=== PATIENT | female | born 1950 | race Caucasian/White ===

== ENCOUNTER 2016-12-02 13:31 | Outpatient (CLI) | payer MEDICARE | END 2016-12-02 13:32 | disposition home or self-care (01) | DX: M16.12 Unilateral primary osteoarthritis, left hip (principal) ==

== ENCOUNTER 2018-07-30 08:32 | Outpatient (CLI) | payer MEDICARE ==
--- NOTE | 2018-08-02 08:41 | Mammography Report ---
Reason: SCREENING MAMMO Procedure Date: 07/30/2018 Accession Number: [id number] / [id number] Procedure: FER - Screening Mammo w/Arnold CPT Code: FULL RESULT: EXAM: Screening Mammo w/Arnold DATE: 07/30/2018 9:42 AM CLINICAL HISTORY: 68-year-old female with history of early menses presents for screening. TECHNIQUE: Bilateral CC and MLO views were obtained. COMPARISON: 02/14/2016, 12/27/2014, 12/15/2013, 12/10/2012. FINDINGS: The breasts demonstrate scattered fibroglandular densities bilaterally. No suspicious masses, clustered microcalcifications, or regions of architectural distortion are identified. IMPRESSION: Negative examination RECOMMENDATION: Routine annual screening unless otherwise clinically indicated. BIRADS CATEGORY 1: Negative STANDARD QUALIFYING STATEMENTS: 1. This examination was not reviewed with the aid of Computer-Aided Detection (CAD). 2. A negative or benign imaging report should not delay biopsy if clinically suspicious findings are present. Consider surgical consultation if warranted. More than 5% of cancers are not identified by imaging. 3. Dense breasts may obscure an underlying neoplasm. 4. This examination was reviewed with the aid of 3D breast imaging (tomosynthesis).
== END 2018-07-30 08:33 | disposition home or self-care (01) ==
LOC: DI 08:32
DX: Z12.31 Encounter for screening mammogram for malignant neoplasm of breast (principal)
CPT/HCPCS: 77063; 77067

== ENCOUNTER 2020-06-25 08:06 | Outpatient (CLI) | payer MEDICARE ==
[2020-06-25 12:15] LABS: BASOPHILS # (AUTO) 0.1 10^3/uL (0.0-0.1); BASOPHILS % (AUTO) 1.1 %; EOSINOPHILS # (AUTO) 0.2 10^3/uL (0.0-0.7); EOSINOPHILS % (AUTO) 2.9 %; HGB - HEMOGLOBIN 14.5 g/dL (12.0-16.0); LYMPHOCYTES # (AUTO) 1.7 10^3/uL (1.5-3.5); LYMPHOCYTES % (AUTO) 30.1 %; MEAN CORPUSCULAR HEMOGLOBIN 33.2 pg (27.0-31.0); MEAN CORPUSCULAR HGB CONC 32.7 g/dL (32.0-36.0); MEAN CORPUSCULAR VOLUME 101.4 fL (81.0-99.0); MONOCYTES # (AUTO) 0.4 10^3/uL (0.0-1.0); MONOCYTES % (AUTO) 7.5 %; NEUTROPHILS # (AUTO) 3.3 10^3/uL (1.5-6.6); PLT - PLATELET COUNT 224 10^3/uL (130-450); RED BLOOD COUNT 4.37 10^6/uL (4.20-5.40); RED CELL DISTRIBUTION WIDTH 12.3 % (12.0-15.0); WHITE BLOOD COUNT 5.6 x10^3/uL (4.8-10.8)
[2020-06-25 12:55] LABS: ALBUMIN 4.2 g/dL (3.2-5.5); ALBUMIN/GLOBULIN RATIO 1.6 (1.0-2.2); ALKALINE PHOSPHATASE 37 IU/L (42-121); ALT ALANINE AMINOTRANSFERASE 16 IU/L (10-60); AST ASPARTATE AMINOTRANSFERASE 18 IU/L (10-42); BILIRUBIN,TOTAL 0.7 mg/dL (0.2-1.0); BUN - BLOOD UREA NITROGEN 9 mg/dL (6-20); CALCIUM 9.1 mg/dL (8.5-10.3); CARBON DIOXIDE - CO2 25 mmol/L (21-32); CHLORIDE 106 mmol/L (101-111); CHOL/HDL RATIO 3.4 (<4.4); CHOLESTEROL 143 mg/dL; GLUCOSE 106 mg/dL (70-100); HDL CHOLESTEROL 42 mg/dL; LDL CHOLESTEROL,CALCULATED 66 mg/dL; LDL/HDL RATIO 1.6 (<4.4); SODIUM 138 mmol/L (135-145); TOTAL PROTEIN 6.9 g/dL (6.7-8.2); VLDL CHOLESTEROL 35 mg/dL
[2020-06-25 13:13] LABS: HEMOGLOBIN A1c% 5.5 % (4.27-6.07)
== END 2020-06-25 23:59 | disposition home or self-care (01) ==
LOC: LAB.WCP 08:06
PROVIDERS: ATTEND Physician Assistant
DX: E78.5 Hyperlipidemia, unspecified (principal); Z83.3 Family history of diabetes mellitus
CPT/HCPCS: 36415; 80053; 80061; 83036; 83721; 85025

== ENCOUNTER 2020-07-23 08:30 | Outpatient (CLI) | payer MEDICARE ==
--- NOTE | 2020-07-23 17:07 | XRAY Report ---
PROCEDURE: Elbow 2 View RT INDICATIONS: EPICONDYLITIS TECHNIQUE: 2 views of the elbow were acquired. COMPARISON: None. FINDINGS: Bones: No acute fractures or dislocations. No suspicious bony lesions. Soft tissues: No elbow joint effusion. No suspicious soft tissue calcifications. IMPRESSION: No acute osseous abnormality. If symptoms persist with conservative management, further evaluation wi th CT or MRI may be obtained. Reviewed by: Bladimir Davison MD on 07/23/2020 5:05 PM [facility] Approved by: Bladimir Davison MD on 07/23/2020 5:05 PM [facility] Station ID: [id number]
== END 2020-07-23 23:59 | disposition home or self-care (01) ==
LOC: DI.N 08:30
PROVIDERS: ATTEND Physician Assistant
DX: M77.8 Other enthesopathies, not elsewhere classified (principal)

== ENCOUNTER 2020-09-18 14:16 | Outpatient (CLI) | payer MEDICARE ==
--- NOTE | 2020-09-19 12:59 | Mammography Report ---
BILATERAL DIGITAL SCREENING MAMMOGRAM 3D/2D: 09/18/2020 CLINICAL: Routine screening. Comparison is made to exams dated: 07/30/2018 mammogram and 02/14/2016 mammogram - [facility]. There are scattered fibroglandular elements in both breasts. No significant masses, calcifications, or other findings are seen in either breast. There has been no significant interval change. IMPRESSION: NEGATIVE There is no mammographic evidence of malignancy. A 1 year screening mammogram is recommended. This exam was interpreted at Station ID: [id number]. NOTE: For mammograms, a report in lay terms will be sent to the patient. Approximately 15% of breast malignancies will not be visualized mammographically. In the management of a palpable breast mass, a negative mammogram must not discourage biopsy of a clinically suspicious lesion. Electronically Signed By: Bladimir Davison M.D. ar/penrad:09/18/2020 15:47:26 ACR BI-RADS Category 1: Negative 3341F PARENCHYMAL PATTERN: (A) - The breast(s) demonstrate(s) scattered fibroglandular densities. BI-RADS CATEGORY: (1) - 1 RECOMMENDATION: (ANNUAL) - Recommend routine annual screening mammography. [id number] 1 year screening LATERALITY: (B)
== END 2020-09-18 14:17 | disposition home or self-care (01) ==
LOC: DI 14:16
DX: Z12.31 Encounter for screening mammogram for malignant neoplasm of breast (principal)
CPT/HCPCS: 77067

== ENCOUNTER 2021-05-01 08:00 | Outpatient (CLI) | payer MEDICARE ==
[2021-05-01 18:53] LABS: GLUCOSE, URINE (UA) 250 mg/dL (NEGATIVE); OCCULT BLOOD,URINE NEGATIVE (NEGATIVE)
[2021-05-01 19:07] LABS: CLARITY,URINE CLOUDY (CLEAR)
[2021-05-01 19:10] LABS: BACTERIA,URINE Few /HPF (None Seen); CRYSTALS,URINE 3-5 Calcium Oxalate /LPF; RBC,URINE None Seen /HPF (0-5); SQUAMOUS EPITHELIAL CELL,UR FEW Squamous (<= Few); WBC CLUMPS,URINE PRESENT; WBC,URINE >25 /HPF (0-5)
[2021-05-01 19:24] LABS: BILIRUBIN,URINE COLOR INTERFERENCE (NEGATIVE)
== END 2021-05-01 23:59 | disposition home or self-care (01) ==
LOC: LAB.WCP 08:00
PROVIDERS: ATTEND Physician Assistant Medical
DX: R30.0 Dysuria (principal)
CPT/HCPCS: 81001; 87086

== ENCOUNTER 2021-07-25 09:55 | Outpatient (CLI) | payer MEDICARE ==
--- NOTE | 2021-07-25 16:17 | XRAY Report ---
PROCEDURE: Finger(s) LT INDICATIONS: LEFT FINGER TRAUMA 3 WEEKS AGO PAIN ALONG 4TH DIGIT PIP TECHNIQUE: AP hand, 2 views of the fourth finger(s) acquired. COMPARISON: None FINDINGS: Bones: There is vague linear lucency traversing the midportion of the middle phalanx of the fourth di git.. No suspicious bony lesions. Soft tissues: No suspicious soft tissue calcifications. IMPRESSION: Minimally displaced middle phalanx fracture of the fourth digit. Reviewed by: Yoly Ann MD on 07/25/2021 4:16 PM PST Approved by: Yoly Ann MD on 07/25/2021 4:16 PM PST Station ID: [id number]
== END 2021-07-25 09:56 | disposition home or self-care (01) ==
LOC: DI.N 09:55
PROVIDERS: ATTEND Physician Assistant Medical
DX: S62.625A Displaced fracture of middle phalanx of left ring finger, initial encounter for closed fracture (principal)

== ENCOUNTER 2021-10-14 09:45 | Outpatient (CLI) | payer MEDICARE ==
--- NOTE | 2021-10-14 16:41 | XRAY Report ---
PROCEDURE: Finger(s) LT INDICATIONS: L FINGER PX TECHNIQUE: AP hand, 3 views of the 4 finger(s) acquired. COMPARISON: X-ray fingers 07/25/2021 FINDINGS: Bones: There is minimal residual fracture lucency of the previously identified fracture within the mi ddle fourth phalanx. Stable alignment is present. No suspicious bony lesions. Soft tissues: No suspicious soft tissue calcifications. IMPRESSION: Stable alignment with interval healing of fourth middle phalanx fracture. Reviewed by: Mellisa Leroy MD on 10/14/2021 4:39 PM PST Approved by: Mellisa Leroy MD on 10/14/2021 4:39 PM PST Station ID: [id number]
== END 2021-10-14 09:46 | disposition home or self-care (01) ==
LOC: DI.N 09:45
PROVIDERS: ATTEND Physician Assistant Medical
DX: S62.625D Displaced fracture of middle phalanx of left ring finger, subsequent encounter for fracture with routine healing (principal)

== ENCOUNTER 2021-11-12 14:38 | Outpatient (CLI) | payer MEDICARE ==
--- NOTE | 2021-11-15 06:41 | Mammography Report ---
BILATERAL DIGITAL SCREENING MAMMOGRAM 3D/2D: 11/12/2021 CLINICAL: Routine screening. Comparison is made to exams dated: 09/18/2020 mammogram, 07/30/2018 mammogram, and 02/14/2016 mammogram - [facility]. The tissue of both breasts is predominantly fatty. No significant masses, calcifications, or other findings are seen in either breast. There has been no significant interval change. IMPRESSION: NEGATIVE There is no mammographic evidence of malignancy. A 1 year screening mammogram is recommended. This exam was interpreted at Station ID: [id number]. NOTE: For mammograms, a report in lay terms will be sent to the patient. Approximately 15% of breast malignancies will not be visualized mammographically. In the management of a palpable breast mass, a negative mammogram must not discourage biopsy of a clinically suspicious lesion. Electronically Signed By: Priscila aleman/penrad:11/13/2021 08:51:44 ACR BI-RADS Category 1: Negative 3341F PARENCHYMAL PATTERN: (F) - The breast(s) demonstrate(s) diffuse fatty replacement. BI-RADS CATEGORY: (1) - 1 RECOMMENDATION: (ANNUAL) - Recommend routine annual screening mammography. [id number] 1 year screening LATERALITY: (B)
== END 2021-11-12 14:39 | disposition home or self-care (01) ==
LOC: DI.N 14:38
DX: Z12.31 Encounter for screening mammogram for malignant neoplasm of breast (principal)

== ENCOUNTER 2021-11-18 07:23 | Outpatient (CLI) | payer MEDICARE ==
[2021-11-18 13:30] LABS: BASOPHILS # (AUTO) 0.1 10^3/uL (0.0-0.1); BASOPHILS % (AUTO) 0.9 %; EOSINOPHILS # (AUTO) 0.2 10^3/uL (0.0-0.7); EOSINOPHILS % (AUTO) 2.1 %; HCT - HEMATOCRIT 46.4 % (37.0-47.0); HGB - HEMOGLOBIN 15.6 g/dL (12.0-16.0); MEAN CORPUSCULAR HEMOGLOBIN 34.1 pg (27.0-31.0); MEAN CORPUSCULAR HGB CONC 33.6 g/dL (32.0-36.0); MEAN CORPUSCULAR VOLUME 101.3 fL (81.0-99.0); MEAN PLATELET VOLUME 11.3 fL (7.9-10.8); MONOCYTES # (AUTO) 0.6 10^3/uL (0.0-1.0); MONOCYTES % (AUTO) 7.9 %; NEUTROPHILS # (AUTO) 5.2 10^3/uL (1.5-6.6); PLT - PLATELET COUNT 246 10^3/uL (130-450); RED BLOOD COUNT 4.58 10^6/uL (4.20-5.40); RED CELL DISTRIBUTION WIDTH 12.3 % (12.0-15.0); WHITE BLOOD COUNT 8.1 x10^3/uL (4.8-10.8)
[2021-11-18 13:41] LABS: THYROID STIMULATING HORMONE 2.63 uIU/mL (0.34-5.60)
[2021-11-18 14:53] LABS: ALBUMIN 4.6 g/dL (3.2-5.5); ALBUMIN/GLOBULIN RATIO 1.8 (1.0-2.2); ALKALINE PHOSPHATASE 49 IU/L (42-121); ALT ALANINE AMINOTRANSFERASE 23 IU/L (10-60); AST ASPARTATE AMINOTRANSFERASE 18 IU/L (10-42); BILIRUBIN,TOTAL 0.6 mg/dL (0.2-1.0); BUN - BLOOD UREA NITROGEN 24 mg/dL (6-20); CHOLESTEROL 138 mg/dL; GFR - MDRD 55 (>89); HDL CHOLESTEROL 46 mg/dL; LDL CHOLESTEROL,CALCULATED 59 mg/dL; LDL/HDL RATIO 1.3 (<4.4); MAGNESIUM 2.1 mg/dL (1.7-2.8); TOTAL PROTEIN 7.1 g/dL (6.7-8.2); TRIGLYCERIDES 167 mg/dL; VLDL CHOLESTEROL 33 mg/dL
[2021-11-18 14:55] LABS: CALCIUM 9.5 mg/dL (8.5-10.3); CARBON DIOXIDE - CO2 27 mmol/L (21-32); CHLORIDE 102 mmol/L (101-111); GLUCOSE 114 mg/dL (70-100); POTASSIUM 4.4 mmol/L (3.5-5.0); SODIUM 141 mmol/L (135-145)
== END 2021-11-18 07:24 | disposition home or self-care (01) ==
LOC: LAB.N 07:23
PROVIDERS: ATTEND Physician Assistant Medical
DX: E78.5 Hyperlipidemia, unspecified (principal); R00.2 Palpitations
CPT/HCPCS: 36415; 80053; 80061; 83721; 83735; 84443; 85025

== ENCOUNTER 2021-11-23 01:37 | Emergency (ER) | payer MEDICARE ==
[2021-11-23 02:00] LABS: BASOPHILS # (AUTO) 0.1 10^3/uL (0.0-0.1); BASOPHILS % (AUTO) 0.6 %; EOSINOPHILS # (AUTO) 0.1 10^3/uL (0.0-0.7); EOSINOPHILS % (AUTO) 0.5 %; HCT - HEMATOCRIT 42.6 % (37.0-47.0); HGB - HEMOGLOBIN 14.6 g/dL (12.0-16.0); LYMPHOCYTES # (AUTO) 1.9 10^3/uL (1.5-3.5); LYMPHOCYTES % (AUTO) 16.5 %; MEAN CORPUSCULAR HEMOGLOBIN 33.8 pg (27.0-31.0); MEAN CORPUSCULAR HGB CONC 34.3 g/dL (32.0-36.0); MEAN CORPUSCULAR VOLUME 98.6 fL (81.0-99.0); MEAN PLATELET VOLUME 10.2 fL (7.9-10.8); MONOCYTES # (AUTO) 0.8 10^3/uL (0.0-1.0); MONOCYTES % (AUTO) 7.4 %; NEUTROPHILS # (AUTO) 8.5 10^3/uL (1.5-6.6); NEUTROPHILS % (AUTO) 74.8 %; PLT - PLATELET COUNT 222 10^3/uL (130-450); RED BLOOD COUNT 4.32 10^6/uL (4.20-5.40); RED CELL DISTRIBUTION WIDTH 12.1 % (12.0-15.0); WHITE BLOOD COUNT 11.3 x10^3/uL (4.8-10.8)
[2021-11-23 02:12] LABS: ALBUMIN 4.5 g/dL (3.2-5.5); ALBUMIN/GLOBULIN RATIO 1.6 (1.0-2.2); BILIRUBIN,TOTAL 0.7 mg/dL (0.2-1.0); CALCIUM 9.2 mg/dL (8.5-10.3); CREATININE 0.9 mg/dL (0.4-1.0); TOTAL PROTEIN 7.4 g/dL (6.7-8.2)
--- NOTE | 2021-11-23 02:49 | ED Physician Documentation ---
PD HPI ABD PAIN - Stated complaint Stated Complaint: ABD BLOATING, L SIDE PX - Chief complaint Chief Complaint: Abd Pain - History obtained from History obtained from: Patient - History of Present Illness Timing - onset: How many hours ago (12) Timing - details: Gradual onset Pain level now: 5 Quality: Aching, Sharp Location: LLQ Radiation: Other (does not radiate) Worsened by: Position (lying supine), Palpation Associated symptoms: No: Fever, Nausea, Vomiting, Diarrhea, Constipation Similar symptoms before: Diagnosis (similar to previous episodes of diverticulitis) Recently seen: Not recently seen - Additional information Additional information: c/o bloating and LLQ abdominal pain x 12 hours [employer]PING [employer]CEIVING [employer]. chills but no diaphoresis. Worse with palpation, worse with lying supine. Similar to previous episodes of diverticulitis Review of Systems Constitutional: reports: Chills. denies: Fever, Sweats Cardiac: reports: Reviewed and negative Respiratory: reports: Reviewed and negative GI: reports: Abdominal Pain. 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 Cardiovascular: Cardiac catheterization, Other - Present Medications Home Medications: Ambulatory Orders Medication Instructions Recorded Confirmed Cholecalciferol (Vitamin D3) 2,000 unit PO DAILY 03/17/16 11/23/21 [Vitamin D3] Valacyclovir HCl [Valacyclovir] 500 mg PO DAILY 03/17/16 11/23/21 Amox/Clav 875/125 [Augmentin 1 tablet PO Q12H 10 Days #20 tablet 11/23/21 875/125 Tab] Ezetimibe/Simvastatin [Vytorin 1 tab PO DAILY 11/23/21 11/23/21 10-20 mg Tablet] HYDROcod/ACETAM 5/325 [[place] 5/325] 1 - 2 tablet PO Q6H PRN #14 tablet 11/23/21 - Allergies Allergies/Adverse Reactions: Allergies Allergy/AdvReac Type Severity Reaction Status Date / Time No Known Drug Allergies Allergy Verified 11/23/21 01:45 PD ED PE NORMAL - Vitals Vital signs reviewed: Yes - General General: Alert and oriented X 3, No acute distress, Well developed/nourished - Cardiac Cardiac: RRR, No murmur - Respiratory Respiratory: No respiratory distress, Clear bilaterally - Abdomen Abdomen: Soft, Non distended, Other (TTP left abdomen, LUQ=LLQ. no rebound or guarding) - Back Back: No CVA TTP - Derm Derm: No rash Results - Vitals Vitals: Oxygen O2 Source Room air - Labs Labs: Microbiology 11/23/21 03:20 Urine Culture - Final Urine,Clean Catch Escherichia Coli Laboratory Tests 11/23/21 11/23/21 11/23/21 01:55 01:55 03:20 WBC 11.3 H RBC 4.32 Hgb 14.6 Hct 42.6 MCV 98.6 MCH 33.8 H MCHC 34.3 RDW 12.1 Plt Count 222 MPV 10.2 Neut # (Auto) 8.5 H Lymph # (Auto) 1.9 Pacific # (Auto) 0.8 Eos # (Auto) 0.1 Baso # (Auto) 0.1 Absolute Nucleated RBC 0.00 Nucleated RBC % 0.0 Sodium 138 Potassium 4.0 Chloride 104 Carbon Dioxide 25 Anion Gap 9.0 BUN 13 Creatinine 0.9 Estimated GFR (MDRD) 62 L Glucose 124 H Calcium 9.2 Total Bilirubin 0.7 AST 18 ALT 20 Alkaline Phosphatase 52 Total Protein 7.4 Albumin 4.5 Globulin 2.9 Albumin/Globulin Ratio 1.6 Lipase 32 Urine Color YELLOW Urine Clarity CLEAR Urine pH 5.0 Ur Specific [place] 1.025 Urine Protein NEGATIVE Urine Glucose (UA) NEGATIVE Urine Ketones NEGATIVE Urine Occult Blood NEGATIVE Urine Nitrite POSITIVE H Urine Bilirubin NEGATIVE Urine Urobilinogen 0.2 (NORMAL) Ur Leukocyte Esterase NEGATIVE Urine RBC 0-5 Urine WBC 0-3 Ur Squamous Epith Cells FEW Squamous Urine Bacteria Moderate H Ur Microscopic Review INDICATED Urine Culture Comments INDICATED - Rads (name of study) CT A/P with IV contrast Radiology: Prelim report reviewed, See rad report PD MEDICAL DECISION MAKING - ED course Complexity details: reviewed results, re-evaluated patient, considered differe ntial, d/w patient ED course: Mild leukocytosis but otherwise unremarkable blood tests. CT A/P confirms uncomplicated diverticulitis at hepatic flexure. Patient says she has had a difficult time with side effects when she was on cipro/flagyl combination and would prefer a different antibiotic(s), although she says she would take cipro/flagyl if there were no reasonable alternative. Will try augmentin, and she is given a dose in ED and rx provided for same. Departure - Departure Disposition: Home, Self Care Clinical Impression: Diverticulitis Condition: Good Instructions: ED Diverticulitis Follow-Up: Rossy Silva PA-C [Primary Care Provider] - (3-5 days if not improving) Prescriptions: Amox/Clav 875/125 [Augmentin 875/125 Tab] 1 tablet PO Q12H 10 Days #20 tablet HYDROcod/ACETAM 5/325 [[place] 5/325] 1 - 2 tablet PO Q6H PRN #14 tablet PRN Reason: Pain Comments: The CT scan confirms diverticulitis, and it appears early enough that it can be treated with oral antibiotics in the outpatient setting. A prescription for the antibiotic (augmentin) and vicodin (for pain) have been electronically submitted to [facility] pharmacy in [place]. I am prescribing a short course of narcotic pain medication for you. These are potentially dangerous and addictive medications that should be used carefully. These medications may constipate you. Take an swcs-fai-tcfntex stool softener (docusate) twice daily with plenty of water while taking these medications. If you go 24 hours without a bowel movement, take npnv-aen-vmgrnlb miralax, per package instructions. Do not drink or drive while taking these medications. If you received narcotic or sedating medications while in the emergency department, do not drive for 24 hours. Store this medication in a safe, secure place and out of reach of children. It is a violation of federal law to give or sell this medication to another person or to use in a manner other than prescribed. The ED will not refill narcotic prescriptions, including prescriptions lost or stolen. To dispose of unwanted medications: 1. [facility] [address] in [place] has a medication drop box. They accept prescription medications (in pill form) Thursday through Thursday 9:00 a.m. to 5:00 p.m. 2. [facility] [employer] accepts prescription medications (in pill form only) for disposal year round. Call for more information. 3. Contact the [facility] for the next [facility] sponsored prescription drug collection event. , [phone], or [phone]; Discharge Date/Time: 11/23/21 06:18
[2021-11-23] MEDS ORDERED: LORazepam 2 MG/ML VIAL IVP STA (03:04)
[2021-11-23] MEDS ORDERED: HYDROmorphone 1 MG/ML CARPUJECT IVP STA (03:04)
[2021-11-23] MEDS ORDERED: IOVERSOL 320 100 ML VIAL IVP ONE ×2 (03:19→04:02)
[2021-11-23 03:34] LABS: BILIRUBIN,URINE NEGATIVE (NEGATIVE); GLUCOSE, URINE (UA) NEGATIVE (NEGATIVE); KETONES,URINE (UA) NEGATIVE (NEGATIVE); LEUKOCYTE ESTERASE, URINE NEGATIVE (NEGATIVE); NITRITE,URINE POSITIVE (NEGATIVE); OCCULT BLOOD,URINE NEGATIVE (NEGATIVE); PROTEIN,URINE NEGATIVE (NEGATIVE); UROBILINOGEN,URINE 0.2 (NORMAL) E.U./dL (NORMAL)
[2021-11-23 03:40] LABS: CLARITY,URINE CLEAR (CLEAR); WBC,URINE 0-3 /HPF (0-5)
[2021-11-23 03:41] LABS: BACTERIA,URINE Moderate /HPF (None Seen); RBC,URINE 0-5 /HPF (0-5); SQUAMOUS EPITHELIAL CELL,UR FEW Squamous (<= Few)
[2021-11-23] MEDS ORDERED: AMOX/CLAV 875 MG/125 MG TABLET PO STA (06:08)
[2021-11-23 06:25] VITALS: BP 111/69
--- NOTE | 2021-11-23 08:58 | CT Report ---
PROCEDURE: Abdomen/Pelvis W INDICATIONS: LLQ pain CONTRAST: IV CONTRAST: Optiray 320 ml: 100 PO CONTRAST: *NO PO CONTRAST TECHNIQUE: After the administration of IV contrast, 5 mm thick sections acquired from the diaphragms to the symp hysis. 5 mm thick coronal and sagittal reformats were acquired. For radiation dose reduction, the f ollowing was used: automated exposure control, adjustment of mA and/or kV according to patient size. COMPARISON: 08/01/2016 FINDINGS: Image quality: Excellent. ABDOMEN: Lung bases: Lung bases are clear. Heart size is normal. There is a moderate hiatal hernia. Solid organs: Diffuse fatty liver infiltration can be seen. The liver demonstrates normal size. No focal liver lesions are seen. The spleen demonstrates normal size and demonstrates no suspicious lesi ons. Gallbladder wall does not appear thickened. Biliary system is non dilated. Pancreas enhance s normally. No adrenal nodules. Kidneys demonstrate normal size and enhancement, without hydronephr osis. Peritoneum and bowel: Generalized colonic diverticulosis is seen, particularly distally. Within the splenic flexure, focal inflammatory change can be seen surrounding a diverticulum. Focal wall thicken ing is seen. No findings of perforation or abscess can be seen. Elsewhere, no significant pericolonic inflammatory change can be seen. No dilated loops of small myrna l are seen. Nodes and vessels: No retroperitoneal or mesenteric adenopathy by size criteria. Aorta and inferior vena cava are normal in size. Miscellaneous: No ventral hernias. PELVIS: Genitourinary: Bladder wall thickness is normal. The uterus demonstrates an unremarkable appearance for age. No adnexal masses are seen. Miscellaneous: No inguinal hernias or adenopathy. Bones: No suspicious bony lesions. Bilateral hip arthroplasty hardware is seen. No vertebral body c ompression fractures. Degenerative changes can be seen throughout, which are worst involving the L2- L3 level. There is mild S-shaped sclerotic curvature. IMPRESSION: Focal diverticulitis seen involving the splenic flexure. More generalized diverticulosis is seen elsewhere, without findings of active diverticulitis. Incidental note is made of: Moderate hiatal hernia Diffuse fatty liver infiltration Focal L2-L3 degenerative change Mild S-shaped sclerotic curvature. Bilateral hip arthroplasty hardware Note: No significant discrepancy from the preliminary report, with note made of a typo within the imp ression of the preliminary report. The inflammatory change involves the splenic flexure, not the hepa tic flexure. Reviewed by: Harjeet Dotson MD on 11/23/2021 7:56 AM [facility] Approved by: Harjeet Dotson MD on 11/23/2021 7:56 AM [facility] Station ID: [id number]
== END 2021-11-23 06:18 | disposition home or self-care (01) ==
LOC: ED 01:37
DX: K57.32 Diverticulitis of large intestine without perforation or abscess without bleeding (principal)
CPT/HCPCS: 36415; 74177; 80053; 81001; 83690; 85025; 87077; 87086; 87181; 96374; 99283; 99284; A9270; J1170; J2060; Q9967; 81003

== ENCOUNTER 2022-01-03 08:00 | Outpatient (CLI) | payer MEDICARE ==
--- NOTE | 2022-01-03 10:43 | XRAY Report ---
PROCEDURE: Hips 2V BILAT INDICATIONS: GROIN PAIN, RIGHT TECHNIQUE: 2 views of the left hip were acquired. COMPARISON: X-ray pelvis and left hip, 11/24/2016. FINDINGS: Bones: Bilateral hip arthroplasties. There is subtle lucency along the femoral stem of the prosthesi s bilaterally, slightly more pronounced on the right than left. No fractures or dislocations. No yvrose picious bony lesions. The visualized pelvic ring appears intact. Soft tissues: No suspicious soft tissue calcifications or masses. IMPRESSION: Bilateral hip arthroplasties. Subtle lucency along the femoral stem of the prosthesis bilaterally. To evaluate prosthesis loosening, a triple phase bone scan would be helpful. Reviewed by: Madelaine Rodarte MD on 01/03/2022 10:42 AM PDT Approved by: Madelaine Rodarte MD on 01/03/2022 10:42 AM PDT Station ID: [id number]
== END 2022-01-03 23:59 | disposition home or self-care (01) ==
LOC: DI.N 08:00
PROVIDERS: ATTEND Family Medicine
DX: R10.31 Right lower quadrant pain (principal); Z96.643 Presence of artificial hip joint, bilateral; R93.6 Abnormal findings on diagnostic imaging of limbs

== ENCOUNTER 2022-01-03 08:00 | Outpatient (CLI) | payer MEDICARE | END 2022-01-03 08:01 | disposition home or self-care (01) | LOC: LAB.N 08:00 | PROVIDERS: ATTEND Family Medicine | DX: R10.31 Right lower quadrant pain (principal) | CPT/HCPCS: 36415; 85379 ==

== ENCOUNTER 2022-01-28 08:46 | Outpatient (CLI) | payer MEDICARE ==
--- NOTE | 2022-01-29 10:37 | Nuclear Medicine Report ---
PROCEDURE: Bone 3-Phase INDICATIONS: ABN HIP XR RADIOPHARMACEUTICAL: 24.5 mCi Tc-99m MDP IV. TECHNIQUE: Multiple bone scintigrams were obtained after intravenous injection of Tc-99m MDP, including flow, bl ood pool, and delayed images centered to the region of interest. COMPARISON: X-ray hips, bilateral, 01/03/2022. FINDINGS: A triple phase bone scan without contrast including flow, blood pool delayed images center ed to the pelvis and hips. The flow and blood pool images demonstrate symmetrical vascular activity i n pelvis and hips bilaterally. There are total hip arthroplasties bilaterally. Delayed images initiat ed low level increased uptake around hip prostheses, which is nonspecific and most likely secondary t o postsurgical change. No scintigraphic findings to suggest prosthesis loosening or infection. IMPRESSION: 1. Bilateral total hip arthroplasties. No definitive scintigraphic findings to suggest prosthesis loo sening or infection. Reviewed by: Madelaine Rodarte MD on 01/29/2022 10:35 AM PDT Approved by: Madelaine Rodarte MD on 01/29/2022 10:35 AM PDT Station ID: [id number]
== END 2022-01-28 08:47 | disposition home or self-care (01) ==
LOC: DI 08:46
PROVIDERS: ATTEND Family Medicine
DX: R10.31 Right lower quadrant pain (principal); Z96.643 Presence of artificial hip joint, bilateral
CPT/HCPCS: 78315

== ENCOUNTER 2022-07-25 08:00 | Outpatient (CLI) | payer MEDICARE ==
[2022-07-25 12:49] LABS: T4 (THYROXINE) 8.38 ug/dL (6.09-12.23)
[2022-07-25 12:55] LABS: THYROID STIMULATING HORMONE 1.11 uIU/mL (0.34-5.60)
== END 2022-07-25 23:59 | disposition home or self-care (01) ==
LOC: LAB.N 08:00
PROVIDERS: ATTEND Physician Assistant
DX: R22.1 Localized swelling, mass and lump, neck (principal)
CPT/HCPCS: 36415; 84436; 84443; 84480

== ENCOUNTER 2022-07-30 07:07 | Outpatient (CLI) | payer MEDICARE ==
--- NOTE | 2022-07-30 13:48 | Ultrasound Report ---
PROCEDURE: Head or Neck Soft Tissue INDICATIONS: NECK MASS TECHNIQUE: Real time scanning was performed of the neck region of interest, with image documentation . COMPARISON: None. FINDINGS: Submandibular glands are seen in the region of the patient indicated palpable abnormalities , which appear normal. No suspicious soft tissue mass is seen. A few small normal-appearing submandib ular lymph nodes are also present. IMPRESSION: No suspicious sonographic abnormality is identified in the patient indicated palpable areas of concer n. Reviewed by: Bladimir Davison MD on 07/30/2022 1:46 PM PST Approved by: Bladimir Davison MD on 07/30/2022 1:46 PM PST Station ID: [id number]
== END 2022-07-30 07:08 | disposition home or self-care (01) ==
LOC: DI 07:07
PROVIDERS: ATTEND Physician Assistant
DX: R22.1 Localized swelling, mass and lump, neck (principal)

== ENCOUNTER 2022-08-27 08:41 | Emergency (ER) | payer MEDICARE ==
[2022-08-27 10:06] LABS: CALCIUM 9.4 mg/dL (8.5-10.3)
--- NOTE | 2022-08-27 10:19 | ED Physician Documentation ---
History of Present Illness - Stated complaint Stated Complaint: C+,SOA - Chief complaint Chief Complaint: General - History obtained from History obtained from: Patient - Additonal information Additional information: Patient is a 72-year-old female with a history of hyperlipidemia presenting for evaluation of body aches, chills, nonproductive cough and congestion. Her symptoms started yesterday and she took a COVID test which was positive this morning. Her is here with similar symptoms. They are interested in antiviral treatment. She has been vaccinated including getting a booster for COVID.She has not tried any yycu-wtt-onwvusv medications yet.She has not tried any tnwa-mbu-qowpxqq medications yet. She additionally reports having sinus pressure for the past 2 months after having A cold. She denies chest pain or labored breathing. Review of Systems Constitutional: reports: Chills, Myalgias Nose: reports: Congestion Cardiac: denies: Chest pain / pressure Respiratory: reports: Cough. 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 Cardiovascular: Cardiac catheterization, Other - Present Medications Home Medications: Ambulatory Orders Medication Instructions Recorded Confirmed Valacyclovir HCl [Valacyclovir] 500 mg PO DAILY 03/17/16 08/27/22 Ezetimibe/Simvastatin [Vytorin 1 tab PO DAILY 11/23/21 08/27/22 10-20 mg Tablet] Amox/Clav 875/125 [Augmentin] 1 each PO Q12H #14 tablet 08/27/22 - Allergies Allergies/Adverse Reactions: Allergies Allergy/AdvReac Type Severity Reaction Status Date / Time No Known Drug Allergies Allergy Verified 11/23/21 01:45 - Social History Does the pt smoke?: No Smoking Status: Never smoker Does the pt drink ETOH?: No Does the pt have substance abuse?: No - Immunizations Immunizations are current?: Yes - POLST Patient has POLST: No PD ED PE NORMAL - General General: Alert and oriented X 3, No acute distress, Well developed/nourished - HEENT HEENT: Atraumatic, Other (Bilateral maxillary sinus tenderness) - Neck Neck: Supple, no meningeal sign - Cardiac Cardiac: RRR, No murmur - Respiratory Respiratory: No respiratory distress - Abdomen Abdomen: Soft, Non tender - Derm Derm: Warm and dry - Extremities Extremities: No edema - Neuro Neuro: Normal speech Results - Vitals Vitals: Vital Signs - 24 hr 08/27/22 08/27/22 08:55 10:29 Temperature 36.9 C 36.9 C Heart Rate 94 82 Respiratory 20 18 Rate Blood Pressure 146/75 H 139/74 H O2 Saturation 95 96 Oxygen O2 Source Room air - Labs Labs: Laboratory Tests 08/27/22 09:53 Sodium 139 Potassium 4.0 Chloride 104 Carbon Dioxide 26 Anion Gap 9.0 BUN 14 Creatinine 1.0 Estimated GFR (MDRD) 54 L Glucose 100 Calcium 9.4 PD Medical Decision Making - ED course ED course: Patient is a 72-year-old presenting for evaluation of COVID symptoms and requesting antiviral treatment. Her vital signs are stable. She is nonlabored with her breathing. She reports having sinus congestion for 2 months. Given the duration of her symptoms I did offer antibiotic treatment for that which she is agreeable to. I did also review risks and benefits of antiviral treatment and options of Paxlovid versus molnupiravir. Patient is agreeable to taking Paxlovid. She is on a statin I did recommend she hold that during the duration of treatment as well as 3 days after.She additionally is on valacyclovir which does not appear to have a contraindication with Paxlovid.Patient's vital signs a re stable. She is counseled on concerning symptoms to return for. Departure - Departure Disposition: 01 Home, Self Care Clinical Impression: COVID-19 Sinusitis Qualifiers: Sinusitis location: maxillary Chronicity: acute Recurrence: non-recurrent Qualified Code(s): J01.00 - Acute maxillary sinusitis, unspecified Condition: Stable Instructions: ED Sinusitis Abx Tx, ED Viral Syndrome Prescriptions: Amox/Clav 875/125 [Augmentin] 1 each PO Q12H #14 tablet Comments: You have tested positive for COVID-19 at home. After discussion we have decided to start you on An antiviral medication called Paxlovid which is under emergency use authorization for the treatment of COVID-19. This medicine is intended to prevent serious effects of COVID including hospitalization and . Please stop your statin medication And do not restart it until 3 days after you have completed Paxlovid as there are interactions with this medication and the antiviral. You also have a sinus infection And I have started you on an antibiotic called Augmentin. I have sent this prescription to [facility] pharmacy If you have any worsening symptoms please consider return to the emergency department. Discharge Date/Time: 08/27/22 10:29
[2022-08-27] MEDS: AMOX/CLAV 875 MG/125 MG TABLET PO STA (10:23)
[2022-08-27] MEDS: NIRMATRELVIR/RITONAVIR PREPACK PO STA (10:23)
[2022-08-27 10:30] VITALS: BP 139/74
--- NOTE | 2022-08-27 14:06 | ED Physician Documentation ---
ED Addendum - Addendum Addendum: 08/27/22 14:06 Took call from patient. Reportedly the pharmacy says the Augmentin was canceled. I wrote a new prescription and re-E prescribed it. 08/27/22 14:06
== END 2022-08-27 10:29 | disposition home or self-care (01) ==
LOC: ED 08:41
DX: U07.1 COVID-19 (principal); E78.00 Pure hypercholesterolemia, unspecified; J01.00 Acute maxillary sinusitis, unspecified; Z79.899 Other long term (current) drug therapy
CPT/HCPCS: 36415; 80048; 99282; 99283; A9270; J3490

== ENCOUNTER 2022-10-02 09:17 | Emergency (ER) | payer MEDICARE ==
--- NOTE | 2022-10-02 10:18 | XRAY Report ---
PROCEDURE: Chest 1 View X-Ray INDICATIONS: Chest pain TECHNIQUE: One view of the chest was acquired. COMPARISON: None. FINDINGS: Surgical changes and devices: None. Lungs and pleura: No pleural effusions or pneumothorax. Lungs are clear. Mediastinum: Mediastinal contours appear normal. Heart size is normal. Bones and chest wall: No suspicious bony lesions. Overlying soft tissues appear unremarkable. IMPRESSION: No acute cardiopulmonary abnormality. Reviewed by: Bladimir Davison MD on 10/02/2022 10:16 AM [facility] Approved by: Bladimir Davison MD on 10/02/2022 10:16 AM [facility] Station ID: [id number]
[2022-10-02 10:34] LABS: BASOPHILS # (AUTO) 0.1 10^3/uL (0.0-0.1); BASOPHILS % (AUTO) 0.8 %; EOSINOPHILS # (AUTO) 0.2 10^3/uL (0.0-0.7); EOSINOPHILS % (AUTO) 3.2 %; HCT - HEMATOCRIT 45.5 % (37.0-47.0); LYMPHOCYTES # (AUTO) 1.7 10^3/uL (1.5-3.5); LYMPHOCYTES % (AUTO) 26.1 %; MEAN CORPUSCULAR HEMOGLOBIN 32.7 pg (27.0-31.0); MEAN CORPUSCULAR VOLUME 99.1 fL (81.0-99.0); MEAN PLATELET VOLUME 10.4 fL (7.9-10.8); MONOCYTES # (AUTO) 0.5 10^3/uL (0.0-1.0); MONOCYTES % (AUTO) 7.2 %; NEUTROPHILS # (AUTO) 4.1 10^3/uL (1.5-6.6); NEUTROPHILS % (AUTO) 62.4 %; PLT - PLATELET COUNT 234 10^3/uL (130-450); RED BLOOD COUNT 4.59 10^6/uL (4.20-5.40); WHITE BLOOD COUNT 6.5 x10^3/uL (4.8-10.8)
[2022-10-02 11:03] LABS: ALBUMIN 4.2 g/dL (3.2-5.5); ALBUMIN/GLOBULIN RATIO 1.4 (1.0-2.2); BILIRUBIN,TOTAL 0.7 mg/dL (0.2-1.0); CALCIUM 9.1 mg/dL (8.5-10.3); CREATININE 0.8 mg/dL (0.4-1.0); POTASSIUM 4.3 mmol/L (3.5-5.0); TOTAL PROTEIN 7.2 g/dL (6.7-8.2)
--- NOTE | 2022-10-02 11:19 | ED Physician Documentation ---
PD HPI CHEST PAIN - Stated complaint Stated Complaint: CHEST PX - Chief complaint Chief Complaint: Cardiac - History obtained from History obtained from: Patient - Additional information Additional information: Patient comes to the emergency department with chief complaint of chest pain for the last week. She states that she has had a pain along her left sternal border and then a pressure-like sensation under her left breast. She states nothing really seems to make it worse or better specifically. There is no exertional component. There are no associated symptoms, such as nausea, diaphoresis, radiation, or shortness of breath. She states she feels slightly winded going up the stairs, but this does not correspond to waxing of the pain. She states the pain never goes away completely, but does randomly wax and wane without identifiable triggers. The patient denies any cough or symptoms of respiratory illness. No fevers or chills. She states she otherwise feels completely fine. 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 She states she went through a full work-up to determine whether she had a coagulopathy and this was negative. She is no longer on anticoagulation. The patient does not have any known history of coronary artery disease. She Has a history of paroxysmal SVT, which failed a ablation, but this has not been bothering her recently. She has occasional palpitations even before onset of this pain, but has not been found to be in SVT at this times. She had a cardiac work-up about a year ago including an event monitor and some other testing, and was cleared from a cardiology standpoint. She states she did not have a stress test done. She had a regular echocardiogram. She has never had angiogram. The patient denies any other complaints at this time. She has an appointment coming up with her regular doctor. Review of Systems Constitutional: reports: Reviewed and negative Eyes: reports: Reviewed and negative Ears: reports: Reviewed and negative Nose: reports: Reviewed and negative Throat: reports: Reviewed and negative Cardiac: reports: Chest pain / pressure Respiratory: reports: Reviewed and negative GI: reports: Reviewed and negative : reports: Reviewed and negative Skin: reports: Reviewed and negative Musculoskeletal: reports: Reviewed and negative Neurologic: reports: Reviewed and negative Psychiatric: reports: Reviewed and negative Endocrine: reports: Reviewed and negative Immunocompromised: reports: Reviewed and negative PD PAST MEDICAL HISTORY - Past Medical History Past Medical History: Yes Cardiovascular: High cholesterol, Pulmonary embolism, Other Respiratory: None Endocrine/Autoimmune: None GI: GERD, Hiatal hernia, Other : Incontinence HEENT: None Psych: Claustrophobia Musculoskeletal: None Derm: None - Past Surgical History Past Surgical History: Yes General: Hiatal hernia repair 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 Cardiovascular: Cardiac catheterization, Other - Present Medications Home Medications: Ambulatory Orders Medication Instructions Recorded Confirmed Valacyclovir HCl [Valacyclovir] 500 mg PO DAILY 03/17/16 08/27/22 Ezetimibe/Simvastatin [Vytorin 1 tab PO DAILY 11/23/21 08/27/22 10-20 mg Tablet] Amox/Clav 875/125 [Augmentin] 1 each PO Q12H #14 tablet 08/27/22 Amox/Clav 875/125 [Augmentin] 1 each PO Q12H #20 tablet 08/27/22 - Allergies Allergies/Adverse Reactions: Allergies Allergy/AdvReac Type Severity Reaction Status Date / Time No Known Drug Allergies Allergy Verified 11/23/21 01:45 - Social History Does the pt smoke?: No Smoking Status: Never smoker Does the pt drink ETOH?: No Does the pt have substance abuse?: No - Immunizations Immunizations are current?: Yes - POLST Patient has POLST: No PD ED PE NORMAL - Vitals Vital signs reviewed: Yes - General General: Alert and oriented X 3, No acute distress, Well developed/nourished - HEENT HEENT: Atraumatic, PERRL, EOMI, Moist mucous membranes - Neck Neck: Supple, no meningeal sign - Cardiac Cardiac: RRR, No murmur, Strong equal pulses - Respiratory Respiratory: No respiratory distress, Clear bilaterally - Abdomen Abdomen: Soft, Non tender, Non distended - Derm Derm: Normal color, Warm and dry, No rash - Extremities Extremities: No deformity, No edema - Neuro Neuro: Alert and oriented X 3, 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 No tenderness beneath the patient's left breast. Results - Vitals Vitals: Vital Signs - 24 hr 10/02/22 12:00 Heart Rate 72 Respiratory 19 Rate Blood Pressure 145/78 H O2 Saturation 100 Oxygen O2 Source Room air - EKG (time done) 0935 Rate: Rate (enter#) (79) Rhythm: NSR [place]: Normal Intervals: Normal OR QRS: Normal Ischemia: Normal ST segments Compare to prior EKG: Old EKG unavailable Computer interpretation: Agree with computer - Labs Labs: Laboratory Tests 10/02/22 10/02/22 10/02/22 10:10 10:10 10:10 WBC 6.5 RBC 4.59 Hgb 15.0 Hct 45.5 MCV 99.1 H MCH 32.7 H MCHC 33.0 RDW 13.0 Plt Count 234 MPV 10.4 Neut # (Auto) 4.1 Lymph # (Auto) 1.7 Franklin # (Auto) 0.5 Eos # (Auto) 0.2 Baso # (Auto) 0.1 Absolute Nucleated RBC 0.00 Nucleated RBC % 0.0 D-Dimer Sodium 139 Potassium 4.3 Chloride 103 Carbon Dioxide 26 Anion Gap 10.0 BUN 14 Creatinine 0.8 Estimated GFR (MDRD) 70 L Glucose 102 H Calcium 9.1 Total Bilirubin 0.7 AST 25 ALT 25 Alkaline Phosphatase 49 Troponin I High Sens 4.3 Total Protein 7.2 Albumin 4.2 Globulin 3.0 Albumin/Globulin Ratio 1.4 Lipase 45 10/02/22 10:10 WBC RBC Hgb Hct MCV MCH MCHC RDW Plt Count MPV Neut # (Auto) Lymph # (Auto) Franklin # (Auto) Eos # (Auto) Baso # (Auto) Absolute Nucleated RBC Nucleated RBC % D-Dimer 240.1 Sodium Potassium Chloride Carbon Dioxide Anion Gap BUN Creatinine Estimated GFR (MDRD) Glucose Calcium Total Bilirubin AST ALT Alkaline Phosphatase Troponin I High Sens Total Protein Albumin Globulin Albumin/Globulin Ratio Lipase - Rads (name of study) Chest x-ray Radiology: Final report received, See rad report (Negative) PD Medical Decision Making - ED course Complexity details: reviewed results, re-evaluated patient, considered differential, d/w patient, d/w family ED course: The patient was well-appearing in the emergency department, and her pain was not accompanied by concerning factors. Additionally, it had been present fairly steadily for a week, with nonspecific waxing and waning unrelated to exertion or anything else. Because of her age, the patient was worked up with chest x-ray, EKG, and laboratory studies including CBC, ER abdominal panel, and troponin, and D-dimer, all of which I did order and review. The patient's work-up overall was unremarkable. CBC showed a normal white blood cell count and no anemia. ER abdominal panel showed normal kidney function. Troponin was negative. D- dimer was also normal. The patient's chest x-ray was unremarkable and her EKG showed a normal sinus rhythm with nonspecific T wave changes. All of these were reviewed by me. I discussed with the patient that given that she has not had a recent worsening in her pain, and the pain has been there week, I feel that 1 troponin is sufficient to determine that she has not had an NC with onset of this pain. I am not entirely certain what is causing the pain, but there is no evidence at this point in time of either an acute coronary syndrome, unstable angina, or a DVT/PE. I discussed with the patient that she needs to talk to her doctor about potentially having a cardiac stress test done to close the loop on work-up for potential underlying coronary artery disease. We discussed that there are no signs of any other emergent cause of chest pain, and that most likely, at this point, the chest pain is due to benign etiology. The patient has an upcoming appointment with her primary care physician in the near future and I have encouraged her to revisit this issue with them and discuss further options for outpatient work-up and treatment. At this point in time, she is stable for discharge home. We have discussed home management of the symptoms, as well as the usual indications for return. Departure - Departure Disposition: 01 Home, Self Care Clinical Impression: Chest pain Qualifiers: Chest pain type: unspecified Qualified Code(s): R07.9 - Chest pain, unspecified Condition: Stable Instructions: ED Chest Pain Atypical Unkn Cause Comments: Your labs, EKG, and chest x-ray all look great. There is no evidence that you have had a heart attack in the last week, and your D-dimer is normal, making the possibility of blood clot very low. Given the duration of your pain over the last week and the lack of concerning exacerbating factors, it is unlikely that your pain represents angina. Given the tenderness of your chest wall, it is most likely that the source of the pain is related to the structures of your chest wall, as opposed to any of your vital organs. However, given your family history, it is advisable that you follow-up as soon as possible with your primary doctor to get a stress test scheduled to address the possibility of significant underlying coronary artery disease. You have already had a cardiac work-up last year but since a stress test was not included in this, this should be done. In the meantime, you may use ibuprofen and Tylenol to help with the discomfort. If you develop worsening pain with exertion, especially if associated with shortness of breath, sweating and nausea, you should return to the emergency department. Discharge Date/Time: 10/02/22 12:43
[2022-10-02 12:21] VITALS: BP 145/78
== END 2022-10-02 12:43 | disposition home or self-care (01) ==
LOC: ED 09:17
DX: R07.9 Chest pain, unspecified (principal)
CPT/HCPCS: 36415; 80053; 83690; 84484; 85025; 85379; 93005; 99283; 99284

== ENCOUNTER 2022-10-07 07:24 | Outpatient (CLI) | payer MEDICARE ==
[2022-10-07 11:57] LABS: BASOPHILS # (AUTO) 0.1 10^3/uL (0.0-0.1); BASOPHILS % (AUTO) 1.3 %; EOSINOPHILS # (AUTO) 0.3 10^3/uL (0.0-0.7); EOSINOPHILS % (AUTO) 4.1 %; HCT - HEMATOCRIT 43.8 % (37.0-47.0); HGB - HEMOGLOBIN 14.1 g/dL (12.0-16.0); LYMPHOCYTES # (AUTO) 1.8 10^3/uL (1.5-3.5); LYMPHOCYTES % (AUTO) 28.9 %; MEAN CORPUSCULAR HEMOGLOBIN 32.2 pg (27.0-31.0); MEAN CORPUSCULAR HGB CONC 32.2 g/dL (32.0-36.0); MEAN PLATELET VOLUME 10.9 fL (7.9-10.8); MONOCYTES # (AUTO) 0.5 10^3/uL (0.0-1.0); MONOCYTES % (AUTO) 7.3 %; NEUTROPHILS # (AUTO) 3.7 10^3/uL (1.5-6.6); NEUTROPHILS % (AUTO) 58.1 %; PLT - PLATELET COUNT 226 10^3/uL (130-450); RED BLOOD COUNT 4.38 10^6/uL (4.20-5.40); RED CELL DISTRIBUTION WIDTH 13.1 % (12.0-15.0); WHITE BLOOD COUNT 6.3 x10^3/uL (4.8-10.8)
[2022-10-07 12:14] LABS: ALBUMIN 3.9 g/dL (3.2-5.5); ALBUMIN/GLOBULIN RATIO 1.3 (1.0-2.2); ALKALINE PHOSPHATASE 43 IU/L (42-121); ALT ALANINE AMINOTRANSFERASE 22 IU/L (10-60); AST ASPARTATE AMINOTRANSFERASE 20 IU/L (10-42); BILIRUBIN,TOTAL 0.7 mg/dL (0.2-1.0); BUN - BLOOD UREA NITROGEN 17 mg/dL (6-20); CALCIUM 9.2 mg/dL (8.5-10.3); CARBON DIOXIDE - CO2 25 mmol/L (21-32); CHLORIDE 104 mmol/L (101-111); CHOLESTEROL 143 mg/dL; CREATININE 0.9 mg/dL (0.4-1.0); GFR - MDRD 61 (>89); GLUCOSE 106 mg/dL (70-100); HDL CHOLESTEROL 47 mg/dL; LDL CHOLESTEROL,CALCULATED 58 mg/dL; LDL/HDL RATIO 1.2 (<4.4); POTASSIUM 4.2 mmol/L (3.5-5.0); SODIUM 138 mmol/L (135-145); TOTAL PROTEIN 6.9 g/dL (6.7-8.2); TRIGLYCERIDES 191 mg/dL; VLDL CHOLESTEROL 38 mg/dL
== END 2022-10-07 07:25 | disposition home or self-care (01) ==
LOC: LAB.N 07:24
PROVIDERS: ATTEND Physician Assistant Medical
DX: E78.5 Hyperlipidemia, unspecified (principal); J01.90 Acute sinusitis, unspecified
CPT/HCPCS: 36415; 80053; 80061; 83721; 85025

== ENCOUNTER 2022-12-23 08:00 | Outpatient (CLI) | payer MEDICARE ==
[2022-12-23 13:07] LABS: CHOL/HDL RATIO 4.4 (<4.4); CHOLESTEROL 171 mg/dL; HDL CHOLESTEROL 39 mg/dL; LDL CHOLESTEROL,CALCULATED 87 mg/dL; LDL/HDL RATIO 2.2 (<4.4); TRIGLYCERIDES 223 mg/dL; VLDL CHOLESTEROL 45 mg/dL
== END 2022-12-23 23:59 | disposition home or self-care (01) ==
LOC: LAB.N 08:00
PROVIDERS: ATTEND Physician Assistant Medical
DX: E78.5 Hyperlipidemia, unspecified (principal)
CPT/HCPCS: 36415; 80061; 83721

== ENCOUNTER 2023-01-12 10:12 | Outpatient (CLI) | payer MEDICARE ==
--- NOTE | 2023-01-12 10:51 | XRAY Report ---
PROCEDURE: Knee 3 View RT INDICATIONS: PAIN IN RT KNEE TECHNIQUE: 3 views of the right knee(s) were acquired. COMPARISON: None. FINDINGS: Bones: No fractures or dislocations. No suspicious bony lesions. Doubtful narrowing of joint spac e and possible osteophytic lipping. This is tricompartmental. Soft tissues: Small knee joint effusion. No suspicious soft tissue calcifications or masses. IMPRESSION: No acute bony abnormality. Tricompartmental Kellgren-Keven scale of osteoarthritis: Grade 1-2: mild osteoarthritis. Reviewed by: Dionte Aguilar on 01/12/2023 10:50 AM PDT Approved by: Dionte Aguilar on 01/12/2023 10:50 AM PDT Station ID: [id number]
== END 2023-01-12 10:13 | disposition home or self-care (01) ==
LOC: DI 10:12
PROVIDERS: ATTEND Physician Assistant Medical
DX: M17.11 Unilateral primary osteoarthritis, right knee (principal)

== ENCOUNTER 2023-03-07 19:31 | Emergency (ER) | payer MEDICARE ==
[2023-03-07 20:35] VITALS: BP 114/72
[2023-03-07] MEDS ORDERED: AMOX/CLAV 875 MG/125 MG TABLET PO STA (20:37)
--- NOTE | 2023-03-07 20:45 | ED Physician Documentation ---
PD HPI ABD PAIN - Stated complaint Stated Complaint: MED REFILL - Chief complaint Chief Complaint: General - History obtained from History obtained from: Patient - Additional information Additional information: Patient is a 73-year-old female with a history of diverticulitis presenting for evaluation of a throbbing left lower quadrant pain that has been present for 3 days. She reports associated bloated feeling. She denies any radiation to the pain. No nausea, vomiting, diarrhea. Shared last bowel movement was this morning and normal. No blood in stools. She states this feels exactly similar to prior episodes of diverticulitis which she states she gets 1-2 times per year. She denies fever, chest pain, difficulty breathing, back pain, dysuria. Review of Systems Constitutional: denies: Fever Cardiac: denies: Chest pain / pressure Respiratory: denies: Dyspnea GI: reports: Abdominal Pain. 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 Cardiovascular: Cardiac catheterization, Other - Present Medications Home Medications: Ambulatory Orders Medication Instructions Recorded Confirmed Valacyclovir HCl [Valacyclovir] 500 mg PO DAILY 03/17/16 08/27/22 Ezetimibe/Simvastatin [Vytorin 1 tab PO DAILY 11/23/21 08/27/22 10-20 mg Tablet] Amox/Clav 875/125 [Augmentin] 1 each PO Q12H #14 tablet 08/27/22 Amox/Clav 875/125 [Augmentin] 1 each PO Q12H #20 tablet 08/27/22 Amox/Clav 875/125 [Augmentin] 1 each PO Q12H #20 tablet 03/07/23 - Allergies Allergies/Adverse Reactions: Allergies Allergy/AdvReac Type Severity Reaction Status Date / Time No Known Drug Allergies Allergy Verified 03/07/23 19:45 - Social History Does the pt smoke?: No Smoking Status: Never smoker Does the pt drink ETOH?: No Does the pt have substance abuse?: No - Immunizations Immunizations are current?: Yes - POLST Patient has POLST: No PD ED PE NORMAL - General General: Alert and oriented X 3, No acute distress, Well developed/nourished - HEENT HEENT: Atraumatic - Neck Neck: Supple, no meningeal sign - Cardiac Cardiac: RRR, No murmur - Respiratory Respiratory: No respiratory distress, Clear bilaterally - Abdomen Abdomen: Normal bowel sounds, Soft, Non distended, Other (Left lower quadrant tenderness to palpation, no rebound, no guarding, no palpable masses) - Derm Derm: Warm and dry - Neuro Neuro: Normal speech Results - Vitals Vitals: Vital Signs - 24 hr 03/07/23 03/07/23 19:41 20:30 Temperature 36.0 C L 36.5 C Heart Rate 115 H 98 Respiratory 16 16 Rate Blood Pressure 139/74 H 114/72 O2 Saturation 97 98 Oxygen O2 Source Room air PD Medical Decision Making - ED course ED course: Patient is 73-year-old female presenting for evaluation of left lower quadrant pain that has been present for 3 days. Patient states this feels like prior episodes of diverticulitis. She initially was tachycardic in triage. I evaluated the patient. She does not have peritoneal signs on abdominal exam. I discussed options for evaluation including labs and imaging. Patient states that this feels like prior episodes of diverticulitis and does not want labs or imaging at this time. Her heart rate did improve without any intervention. Given her history and exam findings and shared decision making patient is agreeable to treatment of presumed diverticulitis with oral antibiotics. However she is advised on strict return precautions for any new or worsening symptoms. Patient is ambulatory, tolerating p.o At discharge. Departure - Departure Disposition: 01 Home, Self Care Clinical Impression: LLQ abdominal pain, History of diverticulitis Condition: Stable Instructions: ED Diverticulitis Prescriptions: Amox/Clav 875/125 [Augmentin] 1 each PO Q12H #20 tablet Comments: Your symptoms are concerning for diverticulitis given your history. You have declined lab testing or any imaging tonight to confirm this diagnosis. However given your history we will start you on antibiotics for presumed diverticulitis. I sent this prescription to [facility] in [place]. You received the first dose tonight. If it anytime you have any worsening symptoms such as fevers/chills, Vomiting, worsening pain or have any new concerns please return to the emergency department for reevaluation. Discharge Date/Time: 03/07/23 20:53
== END 2023-03-07 20:53 | disposition home or self-care (01) ==
LOC: ED 19:31
DX: R10.32 Left lower quadrant pain (principal); Z87.19 Personal history of other diseases of the digestive system
CPT/HCPCS: 99282; 99283; A9270

== ENCOUNTER 2023-09-22 10:00 | Outpatient (CLI) | payer MEDICARE ==
--- NOTE | 2023-09-22 11:22 | XRAY Report ---
PROCEDURE: Chest 2V INDICATIONS: PRODUCTIVE COUGH TECHNIQUE: 2 views of the chest were acquired. COMPARISON: None. FINDINGS: Surgical changes and devices: Tendon anchors are overlying the right humeral head. Lungs and pleura: No pleural effusions or pneumothorax. Lungs are clear. Mediastinum: Mediastinal contours appear normal. Heart size is normal. Bones and chest wall: No suspicious bony lesions. Overlying soft tissues appear unremarkable. IMPRESSION: No acute cardiopulmonary process. Reviewed by: Mellisa Leroy MD on 09/22/2023 11:21 AM [facility] Approved by: Mellisa Leroy MD on 09/22/2023 11:21 AM [facility] Station ID: [id number]
== END 2023-09-22 10:15 | disposition home or self-care (01) ==
LOC: DI.N 10:00
PROVIDERS: ATTEND Nurse Practitioner
DX: R05.8 Other specified cough (principal)

== ENCOUNTER 2024-04-03 08:44 | Emergency (ER) | payer MEDICARE ==
--- NOTE | 2024-04-03 09:34 | ED Physician Documentation ---
PD HPI ABD PAIN - Stated complaint Stated Complaint: FEMALE , ABD PX - Chief complaint Chief Complaint: Abd Pain - History obtained from History obtained from: Patient - History of Present Illness Timing - onset: How many weeks ago (3) Timing - duration: Weeks (3) Timing - details: Still present (increased significantly yesterday into last night.) Quality: Cramping, Aching, Pain PD PAST MEDICAL HISTORY - Past Medical History Cardiovascular: High cholesterol, Pulmonary embolism, Other Respiratory: None Endocrine/Autoimmune: None GI: GERD, Hiatal hernia, Diverticulitis, Other : Incontinence HEENT: None Psych: Claustrophobia Musculoskeletal: None Derm: None - Past Surgical History Past Surgical History: Yes General: Hiatal hernia repair Ortho: Shoulder arthroplasty /[employer]: Other Cardiovascular: Cardiac catheterization, Other - Present Medications Home Medications: Ambulatory Orders Medication Instructions Recorded Confirmed Valacyclovir HCl [Valacyclovir] 500 mg PO DAILY 03/17/16 08/27/22 Amox/Clav 875/125 [Augmentin] 1 each PO Q12H #12 tablet 04/03/24 Calcium Citrate 1 tab PO DAILY 04/03/24 04/03/24 Cholecalciferol (Vitamin D3) 1 cap PO DAILY 04/03/24 04/03/24 [Vitamin D3] Cyanocobalamin (Vitamin B-12) 1 tab PO DAILY 04/03/24 04/03/24 [Vitamin B12] Fluocinolone Acetonide Oil [Flac 1 applic EACHEYE PRN PRN 04/03/24 04/03/24 Otic Oil] HYDROcod/ACETAM 5/325 [[place] 5/325] 1 ea PO Q6H PRN #15 tablet 04/03/24 Meloxicam [Mobic] 7.5 mg PO BID 10 Days #20 tablet 04/03/24 Metoprolol Succinate [Toprol Xl] 1 tab PO DAILY 04/03/24 04/03/24 Ondansetron Odt [Zofran] 4 mg TL Q6H PRN #10 tablet 04/03/24 Pantoprazole Sodium 1 tab PO DAILY 04/03/24 04/03/24 Pantoprazole Sodium [Protonix] 1 tab PO DAILY 04/03/24 04/03/24 Rosuvastatin Calcium 1 tab PO DAILY 04/03/24 04/03/24 Ubiquinol [Coqmax Ubiquinol] 1 cap PO DAILY 04/03/24 04/03/24 - Allergies Allergies/Adverse Reactions: Allergies Allergy/AdvReac Type Severity Reaction Status Date / Time No Known Drug Allergies Allergy Verified 04/03/24 08:51 - Social History Does the pt smoke?: No Smoking Status: Never smoker Does the pt drink ETOH?: No Does the pt have substance abuse?: No - Immunizations Immunizations are current?: Yes - POLST Patient has POLST: No PD ED PE NORMAL - Vitals Vital signs reviewed: Yes - General General: Alert and oriented X 3, Well developed/nourished - Cardiac Cardiac: RRR, No murmur - Respiratory Respiratory: No respiratory distress, Clear bilaterally - Abdomen Abdomen: Other (tender with local guarding and some percussion tender left lower abd. ) - Female Female : Deferred - Rectal Rectal: Deferred - Derm Derm: Normal color - Neuro Neuro: Alert and oriented X 3, No motor deficit, Normal speech Results - Vitals Vitals: Oxygen O2 Source Room air - Labs Labs: Microbiology 04/03/24 09:50 Urine Culture - Preliminary Urine,Random Laboratory Tests 04/03/24 04/03/24 04/03/24 09:20 09:20 09:50 WBC 12.9 H RBC 4.54 Hgb 14.8 Hct 45.0 MCV 99.1 H MCH 32.6 H MCHC 32.9 RDW 12.1 Plt Count 269 MPV 10.5 Neut # (Auto) 10.1 H Lymph # (Auto) 1.6 [place] # (Auto) 0.9 Eos # (Auto) 0.1 Baso # (Auto) 0.1 Absolute Nucleated RBC 0.00 Nucleated RBC % 0.0 Sodium 136 Potassium 4.3 Chloride 104 Carbon Dioxide 26 Anion Gap 6.0 BUN 16 Creatinine 1.0 Estimated GFR (MDRD) 54 L Glucose 127 H Calcium 9.8 Total Bilirubin 1.0 AST 13 ALT 16 Alkaline Phosphatase 55 Total Protein 7.2 Albumin 4.4 Globulin 2.8 Albumin/Globulin Ratio 1.6 Lipase 31 Urine Color YELLOW Urine Clarity CLEAR Urine pH 6.0 Ur Specific [place] 1.025 Urine Protein NEGATIVE Urine Glucose (UA) NEGATIVE Urine Ketones NEGATIVE Urine Occult Blood NEGATIVE Urine Nitrite POSITIVE H Urine Bilirubin NEGATIVE Urine Urobilinogen 0.2 (NORMAL) Ur Leukocyte Esterase NEGATIVE Urine RBC None Seen Urine WBC 4-5 Ur Squamous Epith Cells FEW Squamous Urine Bacteria Moderate H Ur Microscopic Review INDICATED Urine Culture Comments INDICATED - Rads (name of study) abd/pelvic CT Relevant Findings:: Prelim report reviewed (uncomplicated mid sigmoid diverticulitis. ) PD Medical Decision Making - ED course Complexity details: re-evaluated patient (feeling less pain to minimal after IV fluids, Dilaudid, Toradol. Started antibiotic with IV unasyn to be closest to PO Augmentin as usually recommended for diverticultiis. ), d/w patient ED course: 74-year-old woman with history of diverticulitis a few times in the past without need for surgery has had 3 weeks of left lower abdominal pain fairly consistently that has increased significantly yesterday and overnight. Pain is stayed in the same location. Intermittent nausea without any vomiting. Normal bowel movements without any diarrhea nor constipation. She did notice a feeling of lower abdominal bloating and pressure with the feeling of urinary urgency starting yesterday as well. No prior history of kidney stones. She has had diverticulitis previously with symptoms feeling like this. She had been taking Pepto-Bismol and Tylenol and Gas-X without any relief. She has had urinary symptoms so we can check a urine for signs of infection. Her symptoms otherwise seem more diverticulitis with a significant increase since yesterday. Therefore I did suggest getting labs as well as a CT scan to look for complications of diverticulitis or alternative diagnoses such as kidney stone, pyeloetc. Departure - Departure Disposition: 01 Home, Self Care Clinical Impression: Left sided abdominal pain, Acute diverticulitis, Dysuria Condition: Stable Record reviewed to determine appropriate education?: Yes Instructions: ED Diverticulitis Follow-Up: Rossy Silva PA-C [Primary Care Provider] - Prescriptions: Amox/Clav 875/125 [Augmentin] 1 each PO Q12H #12 tablet Meloxicam [Mobic] 7.5 mg PO BID 10 Days #20 tablet HYDROcod/ACETAM 5/325 [[place] 5/325] 1 ea PO Q6H PRN #15 tablet PRN Reason: Pain Ondansetron Odt [Zofran] 4 mg TL Q6H PRN #10 tablet PRN Reason: Nausea / Vomiting Comments: Your CT scan shows diverticulitis in the sigmoid colon which is the lower part around the bladder area. This may be irritating the bladder and causing spasms and some of your symptoms with the frequency of urination. The urine sample itself had some white cells and a couple of bacteria so there could be some concurrent bladder infection 2. The antibiotic for the diverticulitis would cover a bladder infection as well (the causative germs for both are the same ones). Primarily would be focused at the diverticulitis with a combination of staying well-hydrated with frequent fluids and nonbulky foods for a few days. Anti- inflammatories such as meloxicam can be used to help with the inflammation of the diverticulitis and then Augmentin antibiotic twice daily for presumed infectious component. Add ondansetron if needed for nausea and Tylenol/acetaminophen 500 to 650 mg 4 times a day for pain. To that add hydrocodone/acetaminophen every 6 hours if needed for worse pain. I would anticipate improvement over the next 2 to 3 days and resolution by 3 to 5 days back to normal. Recheck if not improving in that timeframe and return if worse. Your CT scan did not show any signs of kidney stones or kidney inflammation and no signs of abscess or perforation of the diverticulitis. No other abnormalities. I sent your prescriptions to your preferred pharmacy, [facility] in [place]. I am prescribing a short course of narcotic pain medication for you. These are potentially dangerous and addictive medications that should be used carefully. These medications may constipate you. Take an [id number] stool softener such as docusate twice daily with plenty of water while taking these medications. If you go 24 hours without a bowel movement, take [id number] MiraLAX, per package instructions. Do not drink or drive while taking these medications. If you received narcotic or sedating medications while in the emergency department do not drive for 24 hours. Store this medication in a safe, secure place and out of reach of children. It is a violation of federal law to give or sell this medication to another person or to use in a manner other than prescribed. The ED will not refill narcotic prescriptions, including prescriptions lost or stolen. You can dispose of unwanted medications at the [facility]'s office or at several pharmacies such as [facility]. Forms: PCP List Discharge Date/Time: 04/03/24 12:45
[2024-04-03] MEDS: HYDROmorphone 1 MG/ML CARPUJECT IVP STA (09:39)
[2024-04-03] MEDS: KETOROLAC 15 MG/ML VIAL IVP STA (09:40)
[2024-04-03] MEDS: ONDANSETRON 4 MG/2 ML VIAL IVP STA (09:40)
[2024-04-03 09:46] LABS: BASOPHILS # (AUTO) 0.1 10^3/uL (0.0-0.1); BASOPHILS % (AUTO) 0.5 %; EOSINOPHILS # (AUTO) 0.1 10^3/uL (0.0-0.7); EOSINOPHILS % (AUTO) 0.7 %; HGB - HEMOGLOBIN 14.8 g/dL (12.0-16.0); LYMPHOCYTES # (AUTO) 1.6 10^3/uL (1.5-3.5); LYMPHOCYTES % (AUTO) 12.5 %; MEAN CORPUSCULAR HEMOGLOBIN 32.6 pg (27.0-31.0); MEAN CORPUSCULAR HGB CONC 32.9 g/dL (32.0-36.0); MEAN CORPUSCULAR VOLUME 99.1 fL (81.0-99.0); MEAN PLATELET VOLUME 10.5 fL (7.9-10.8); MONOCYTES # (AUTO) 0.9 10^3/uL (0.0-1.0); MONOCYTES % (AUTO) 7.3 %; NEUTROPHILS # (AUTO) 10.1 10^3/uL (1.5-6.6); NEUTROPHILS % (AUTO) 78.7 %; PLT - PLATELET COUNT 269 10^3/uL (130-450); RED BLOOD COUNT 4.54 10^6/uL (4.20-5.40); RED CELL DISTRIBUTION WIDTH 12.1 % (12.0-15.0); WHITE BLOOD COUNT 12.9 x10^3/uL (4.8-10.8)
[2024-04-03] MEDS: SODIUM CHLORIDE 0.9% 1,000 ML IV STA (09:46)
[2024-04-03 09:58] LABS: ALBUMIN 4.4 g/dL (3.2-5.5); ALBUMIN/GLOBULIN RATIO 1.6 (1.0-2.2); CALCIUM 9.8 mg/dL (8.5-10.3); POTASSIUM 4.3 mmol/L (3.5-4.5); TOTAL PROTEIN 7.2 g/dL (6.4-8.9)
[2024-04-03] MEDS ORDERED: iohexoL-300 100 ML VIAL ONE (10:02)
[2024-04-03 10:15] LABS: BILIRUBIN,URINE NEGATIVE (NEGATIVE); GLUCOSE, URINE (UA) NEGATIVE (NEGATIVE); KETONES,URINE (UA) NEGATIVE (NEGATIVE); LEUKOCYTE ESTERASE, URINE NEGATIVE (NEGATIVE); NITRITE,URINE POSITIVE (NEGATIVE); OCCULT BLOOD,URINE NEGATIVE (NEGATIVE); PROTEIN,URINE NEGATIVE (NEGATIVE); UROBILINOGEN,URINE 0.2 (NORMAL) E.U./dL (NORMAL)
[2024-04-03] MEDS: iohexoL-300 100 ML VIAL IVP ONE (10:24)
[2024-04-03 10:26] LABS: CLARITY,URINE CLEAR (CLEAR)
[2024-04-03 10:27] LABS: BACTERIA,URINE Moderate /HPF (None Seen); RBC,URINE None Seen /HPF (0-5); SQUAMOUS EPITHELIAL CELL,UR FEW Squamous (<= Few)
--- NOTE | 2024-04-03 10:49 | CT Report ---
PROCEDURE: Abdomen/Pelvis W INDICATIONS: LLQ Abdominal pain, diverticulitis suspected TECHNIQUE: Helical axial CT of the abdomen and pelvis was obtained after intravenous contrast adminis tration and reformatted in multiple planes. Radiation dose reduction was achieved using automated exp osure control or adjustment of mA and/or kV according to patient size. COMPARISON: 03/26/2023 FINDINGS: Lower thorax: The lung bases are clear. Heart size normal. Moderate hiatal hernia. Liver: Hepatic parenchyma is diffusely decreased in attenuation without focal mass lesion. Biliary system: No calcified cholelithiasis or pericholecystic inflammation. No evidence of bile du ct dilatation. Pancreas: Unremarkable without mass or inflammation evident. Spleen: Normal in size and density. Adrenals: Normal morphology and density. Reproductive system: Unremarkable as visualized. Urinary system: Normal renal size and attenuation. No renal calculi, hydronephrosis, or solid mass p resent. Urinary bladder unremarkable. Gastrointestinal system: Sigmoid diverticulosis with superimposed to the mid sigmoid wall thickening with pericolonic auditory changes consistent with acute diverticulitis. No abscess or free air. No ob struction. Normal appendix Peritoneal spaces: No mesenteric or retroperitoneal adenopathy. No free air. No free fluid. Vasculature: Atherosclerotic calcification of the abdominal aorta without evidence of aneurysm. Abdominal wall: Abdominal wall is intact without evidence of ventral or inguinal hernias. Musculoskeletal: Normal bone mineralization. No acute fractures. Artifact arising from bilateral hi p prosthesis limits assessment of several images in the pelvis. 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 No evidence of abscess or free air. No bowel obstruct ion Incidental moderate hiatal hernia Reviewed by: Edmundo Aguilar MD on 04/03/2024 9:48 AM AKBLANCA Approved by: Edmundo Aguilar MD on 04/03/2024 9:48 AM AKDT Station ID: [id number]
[2024-04-03] MEDS: AMPICILLIN/SULBACTAM 1.5 GM in SODIUM CHLORIDE 0.9% MINIBAG 100 ML IV STA (11:34)
[2024-04-03 11:44] VITALS: O2SAT 100
[2024-04-03 12:59] VITALS: BP 118/79
== END 2024-04-03 12:45 | disposition home or self-care (01) ==
LOC: ED 08:44
DX: K57.32 Diverticulitis of large intestine without perforation or abscess without bleeding (principal); R30.0 Dysuria; R35.0 Frequency of micturition
CPT/HCPCS: 36415; 74177; 80053; 81001; 83690; 85025; 87077; 87086; 87181; 96365; 96375; 99284; J1170; Q9967; 81003

== ENCOUNTER 2024-04-25 06:42 | Emergency (ER) | payer MEDICARE ==
--- NOTE | 2024-04-25 07:11 | ED Physician Documentation ---
PD HPI ABD PAIN - Stated complaint Stated Complaint: ABD PX,NAUSEA - Chief complaint Chief Complaint: Abd Pain - History obtained from History obtained from: Patient - History of Present Illness Timing - onset: Last night Timing - duration: Hours Timing - details: Gradual onset, Still present Quality: Cramping, Aching, Pain Location: RUQ, RLQ Radiation: No: Right flank Associated symptoms: Nausea. No: Fever, Vomiting, Diarrhea Similar symptoms before: Has not had sx before (diverticulitis LLQ in the recent past. No prior episodes of pain right side.) Recently seen: Clinic (had endoscopic US for CBD.) Review of Systems Constitutional: denies: Fever, Chills GI: reports: Abdominal Pain, Nausea. denies: Vomiting, Constipation, Diarrhea : denies: Dysuria PD PAST MEDICAL HISTORY - Past Medical History Past Medical History: Yes Cardiovascular: High cholesterol, Pulmonary embolism, Other Respiratory: None Endocrine/Autoimmune: None GI: GERD, Hiatal hernia, Diverticulitis, Other : Incontinence HEENT: None Psych: Claustrophobia Musculoskeletal: None Derm: None - Past Surgical History Past Surgical History: Yes General: Hiatal hernia repair Ortho: Shoulder arthroplasty /[employer]ER: Other Cardiovascular: Cardiac catheterization, Other - Present Medications Home Medications: Ambulatory Orders Medication Instructions Recorded Confirmed Valacyclovir HCl [Valacyclovir] 250 mg PO DAILY 03/17/16 04/25/24 Calcium Citrate 1 tab PO DAILY 04/03/24 04/25/24 Fluocinolone Acetonide Oil [Flac 1 applic EACHEYE PRN PRN 04/03/24 04/25/24 Otic Oil] Metoprolol Succinate [Toprol Xl] 1 tab PO DAILY 04/03/24 04/25/24 Pantoprazole Sodium 1 tab PO DAILY 04/03/24 04/25/24 Rosuvastatin Calcium 1 tab PO DAILY 04/03/24 04/25/24 Ubiquinol [Coqmax Ubiquinol] 1 cap PO DAILY 04/03/24 04/25/24 Amox/Clav 875/125 [Augmentin] 1 each PO Q12H #14 tablet 04/25/24 Benzonatate 200 mg PO DAILY PRN 04/25/24 04/25/24 HYDROmorphone [Dilaudid] 2 mg PO Q6H PRN #14 tablet 04/25/24 Meloxicam [Mobic] 7.5 mg PO BID 10 Days #20 tablet 04/25/24 [place]-3 Fatty Acids/Fish Oil [Fish 1 each PO DAILY 04/25/24 04/25/24 Oil 1,000 mg Softgel] Ondansetron Odt [Zofran] 4 mg TL Q6H PRN #20 tablet 04/25/24 Povidone/Pf [[place] 0.5% Eye Drop] 1 drops EACHEYE TID 04/25/24 04/25/24 Promethazine [Phenergan] 25 mg PO Q6H PRN #10 tab 04/25/24 - Allergies Allergies/Adverse Reactions: Allergies Allergy/AdvReac Type Severity Reaction Status Date / Time No Known Drug Allergies Allergy Verified 04/25/24 06:52 - Social History Does the pt smoke?: No Smoking Status: Never smoker Does the pt drink ETOH?: No Does the pt have substance abuse?: No - Immunizations Immunizations are current?: Yes - POLST Patient has POLST: No PD ED PE NORMAL - Vitals Vital signs reviewed: Yes - General General: Alert and oriented X 3, Well developed/nourished, Other (appears in pain) - Respiratory Respiratory: No respiratory distress, Clear bilaterally - Abdomen Abdomen: Normal bowel sounds, Soft, Non distended, No organomegaly, Other (tender right mid abdomen with some guarding but no percussion nor rebound tenderness. ) - Back Back: No CVA TTP - Derm Derm: Normal color Results - Vitals Vitals: Vital Signs - 24 hr 04/25/24 04/25/24 04/25/24 06:47 09:07 10:26 Temperature 36.7 C 36.8 C Heart Rate 86 72 74 Respiratory 20 16 18 Rate Blood Pressure 149/83 H 135/74 H 138/79 H O2 Saturation 98 99 98 Oxygen O2 Source Room air - Labs Labs: Laboratory Tests 04/25/24 04/25/24 04/25/24 07:00 07:00 07:00 WBC 10.3 RBC 4.29 Hgb 14.5 Hct 42.8 MCV 99.8 H MCH 33.8 H MCHC 33.9 RDW 12.7 Plt Count 196 MPV 10.7 Neut # (Auto) 7.7 H Lymph # (Auto) 1.5 [place] # (Auto) 0.8 Eos # (Auto) 0.2 Baso # (Auto) 0.1 Absolute Nucleated RBC 0.00 Nucleated RBC % 0.0 Sodium 138 Potassium 4.1 Chloride 105 Carbon Dioxide 26 Anion Gap 7.0 BUN 14 Creatinine 0.9 Estimated GFR (MDRD) 61 L Glucose 121 H Calcium 9.5 Magnesium 1.8 Total Bilirubin 0.7 AST 15 ALT 17 Alkaline Phosphatase 49 Total Protein 7.3 Albumin 4.4 Globulin 2.9 Albumin/Globulin Ratio 1.5 Lipase 31 Urine Color Urine Clarity Urine pH Ur Specific [place] Urine Protein Urine Glucose (UA) Urine Ketones Urine Occult Blood Urine Nitrite Urine Bilirubin Urine Urobilinogen Ur Leukocyte Esterase Ur Microscopic Review Urine Culture Comments 04/25/24 08:42 WBC RBC Hgb Hct MCV MCH MCHC RDW Plt Count MPV Neut # (Auto) Lymph # (Auto) [place] # (Auto) Eos # (Auto) Baso # (Auto) Absolute Nucleated RBC Nucleated RBC % Sodium Potassium Chloride Carbon Dioxide Anion Gap BUN Creatinine Estimated GFR (MDRD) Glucose Calcium Magnesium Total Bilirubin AST ALT Alkaline Phosphatase Total Protein Albumin Globulin Albumin/Globulin Ratio Lipase Urine Color YELLOW Urine Clarity CLEAR Urine pH 6.0 Ur Specific [place] 1.025 Urine Protein NEGATIVE Urine Glucose (UA) NEGATIVE Urine Ketones NEGATIVE Urine Occult Blood NEGATIVE Urine Nitrite NEGATIVE Urine Bilirubin NEGATIVE Urine Urobilinogen 0.2 (NORMAL) Ur Leukocyte Esterase NEGATIVE Ur Microscopic Review NOT INDICATED Urine Culture Comments NOT INDICATED - Rads (name of study) abd/pelvic CT Relevant Findings:: Prelim report reviewed (no stones, gallbladder okay. noraml ducts. There is inflammation at rectal and sigmoid area c/w diverticulitis. ), EMP independent interpretation of test PD Medical Decision Making - ED course Complexity details: reviewed results (has sigmoid diverticulitis. Interesting to refer the pain to mid/upper abd on right. ), considered differential (right mid abd pain. Consider kidney infection, stone, gallstones, pancreas, appendixicits.), d/w patient Departure - Departure Disposition: 01 Home, Self Care Clinical Impression: Right sided abdominal pain, Diverticulitis Condition: Stable Record reviewed to determine appropriate education?: Yes Instructions: ED Abdominal Pain Female Non-Specific Abdominal Pain Follow-Up: Rossy Silva PA-C [Primary Care Provider] - Prescriptions: Amox/Clav 875/125 [Augmentin] 1 each PO Q12H #14 tablet HYDROmorphone [Dilaudid] 2 mg PO Q6H PRN #14 tablet PRN Reason: Pain Meloxicam [Mobic] 7.5 mg PO BID 10 Days #20 tablet Promethazine [Phenergan] 25 mg PO Q6H PRN #10 tab PRN Reason: Nausea / Vomiting Ondansetron Odt [Zofran] 4 mg TL Q6H PRN #20 tablet PRN Reason: Nausea / Vomiting Comments: Your blood test did not show any inflammation or irritation of the pancreas or liver. Your white count is normal as well. The CT scan does not show any abnormalities around the common bile duct, gallbladder or pancreatic duct. They do see some rectal and sigmoid diverticulitis. I would expect the pain of this to be lower than the pain you are having. We would still treat it with anti-inflammatory and antibiotic as well as pain medicine if needed. I will pre scribe some antinausea and medications as well to take 20 or 30 minutes before the pain pills to reduce their side effects. Given the recent endoscopy and ultrasound, there could potentially be some spasming around the common bile duct or upper intestines causing the pain in that area. It is a little bit later than I would expect, 4 days later after the procedure. The anti-inflammatory medications used generally will help with this as well. Avoid fatty foods and large meals for couple of days. Recheck of your symptoms generally not improved over the next few days and resolved by 3 to 5 days. I sent your prescriptions to your preferred pharmacy. Since you have had nausea and general intolerance of other pain pills in the past, and seemed to do okay with the hydromorphone/Dilaudid here IV along with nausea medicine, I wrote prescriptions orally for those. It may be the route that is the main issue and the side effects so oral version may still be nauseating. Hopefully the antina usea medicines will obviate that. I am prescribing a short course of narcotic pain medication for you. These are potentially dangerous and addictive medications that should be used carefully. These medications may constipate you. Take an ygcm-phv-lwqmexf stool softener such as docusate twice daily with plenty of water while taking these medications. If you go 24 hours without a bowel movement, take [id number] MiraLAX, per package instructions. Do not drink or drive while taking these medications. If you received narcotic or sedating medications while in the emergency department do not drive for 24 hours. Store this medication in a safe, secure place and out of reach of children. It is a violation of federal law to give or sell this medication to another person or to use in a manner other than prescribed. The ED will not refill narcotic prescriptions, including prescriptions lost or stolen. You can dispose of unwanted medications at the [facility]'s office or at several pharmacies such as [facility]. Forms: PCP List Discharge Date/Time: 04/25/24 10:26
[2024-04-25 07:23] LABS: BASOPHILS # (AUTO) 0.1 10^3/uL (0.0-0.1); BASOPHILS % (AUTO) 0.5 %; EOSINOPHILS # (AUTO) 0.2 10^3/uL (0.0-0.7); EOSINOPHILS % (AUTO) 1.5 %; HCT - HEMATOCRIT 42.8 % (37.0-47.0); HGB - HEMOGLOBIN 14.5 g/dL (12.0-16.0); LYMPHOCYTES # (AUTO) 1.5 10^3/uL (1.5-3.5); LYMPHOCYTES % (AUTO) 14.2 %; MEAN CORPUSCULAR HEMOGLOBIN 33.8 pg (27.0-31.0); MEAN CORPUSCULAR HGB CONC 33.9 g/dL (32.0-36.0); MEAN CORPUSCULAR VOLUME 99.8 fL (81.0-99.0); MEAN PLATELET VOLUME 10.7 fL (7.9-10.8); MONOCYTES # (AUTO) 0.8 10^3/uL (0.0-1.0); MONOCYTES % (AUTO) 7.6 %; NEUTROPHILS # (AUTO) 7.7 10^3/uL (1.5-6.6); PLT - PLATELET COUNT 196 10^3/uL (130-450); RED BLOOD COUNT 4.29 10^6/uL (4.20-5.40); RED CELL DISTRIBUTION WIDTH 12.7 % (12.0-15.0); WHITE BLOOD COUNT 10.3 x10^3/uL (4.8-10.8)
[2024-04-25 07:25] LABS: ALBUMIN 4.4 g/dL (3.2-5.5); ALBUMIN/GLOBULIN RATIO 1.5 (1.0-2.2); BILIRUBIN,TOTAL 0.7 mg/dL (0.2-1.0); CALCIUM 9.5 mg/dL (8.5-10.3); CREATININE 0.9 mg/dL (0.6-1.3); POTASSIUM 4.1 mmol/L (3.5-4.5); TOTAL PROTEIN 7.3 g/dL (6.4-8.9)
[2024-04-25] MEDS: SODIUM CHLORIDE 0.9% 1,000 ML IV STA (07:44)
[2024-04-25] MEDS: KETOROLAC 15 MG/ML VIAL IVP STA (07:47)
[2024-04-25] MEDS: ONDANSETRON 4 MG/2 ML VIAL IVP STA (07:47)
[2024-04-25] MEDS: HYDROmorphone 1 MG/ML CARPUJECT IVP STA (07:48)
[2024-04-25] MEDS ORDERED: iohexoL-300 100 ML VIAL ONE (08:13)
[2024-04-25 08:49] LABS: BILIRUBIN,URINE NEGATIVE (NEGATIVE); GLUCOSE, URINE (UA) NEGATIVE (NEGATIVE); KETONES,URINE (UA) NEGATIVE (NEGATIVE); LEUKOCYTE ESTERASE, URINE NEGATIVE (NEGATIVE); NITRITE,URINE NEGATIVE (NEGATIVE); OCCULT BLOOD,URINE NEGATIVE (NEGATIVE); PROTEIN,URINE NEGATIVE (NEGATIVE); UROBILINOGEN,URINE 0.2 (NORMAL) E.U./dL (NORMAL)
[2024-04-25 08:52] LABS: CLARITY,URINE CLEAR (CLEAR)
[2024-04-25] MEDS: iohexoL-300 100 ML VIAL IVP ONE (08:56)
--- NOTE | 2024-04-25 09:15 | CT Report ---
PROCEDURE: Abdomen/Pelvis W INDICATIONS: RUQ/Right abd pain CONTRAST: Omni 300 100ml TECHNIQUE: After the administration of intravenous contrast, a CT scan of the abdomen and pelvis was performed. Images were recorded and evaluated at appropriate window settings. Reformats: coronal and sagittal. F or radiation dose reduction, the following was used: automated exposure control, adjustment of mA and /or kV according to patient size. COMPARISON: 04/03/2024. FINDINGS: Image quality: Diagnostic. Lower chest: Borderline cardiomegaly. Moderate hiatal hernia. Extreme lung bases are clear.. Liver: No solid mass. Mild diffuse hepatic steatosis. Gallbladder: No radiopaque stones or wall thickening. Biliary tree: No intrahepatic or extrahepatic dilation, accounting for age. Spleen: No splenomegaly. Pancreas: No pancreatic ductal dilation. Adrenals: No adrenal nodule. Kidneys and ureters: No hydronephrosis. No renal cystic lesion which requires follow up. No solid mas s. Stomach, bowel and peritoneum: Abnormal appearance of the sigmoid and proximal rectum again noted wit h no visible diverticula and presumed uncomplicated diverticulitis. Normal appendix. No free air, yoko e fluid, or abscess cavity. Lymph nodes: No central or retroperitoneal adenopathy. Vessels: No infrarenal aortic aneurysm. Patent portal vein. PELVIS Reproductive organs: Unremarkable. Bladder: No abnormal wall thickening, accounting for underdistention. Pelvic lymph nodes: No pelvic adenopathy by size criteria. Bones: No aggressive osseous abnormality. Extensive artifact from bilateral hip arthroplasties. Lumba r degenerative change.. Other: Small periumbilical hernia. No inguinal hernias noted. IMPRESSION: 1. Continued abnormality in the distal sigmoid and proximal rectum which is presumed to represent unc omplicated diverticulitis. However, recommend nonemergent colonoscopy to exclude underlying lesion. 2. No interval changes which explain right upper quadrant pain. 3. Moderate hiatal hernia. 4. Mild fatty liver, noninflamed gallbladder. Reviewed by: Teodoro Call MD on 04/25/2024 9:13 AM PDT Approved by: Teodoro Call MD on 04/25/2024 9:13 AM PDT Station ID: [id number]
[2024-04-25] MEDS: AMOX/CLAV 875 MG/125 MG TABLET PO STA (10:26)
[2024-04-25 10:49] VITALS: BP 138/79; O2SAT 98
== END 2024-04-25 10:26 | disposition home or self-care (01) ==
LOC: ED 06:42
DX: R10.9 Unspecified abdominal pain (principal); K57.32 Diverticulitis of large intestine without perforation or abscess without bleeding; R11.0 Nausea; E78.00 Pure hypercholesterolemia, unspecified; K44.9 Diaphragmatic hernia without obstruction or gangrene; Z79.899 Other long term (current) drug therapy
CPT/HCPCS: 36415; 74177; 80053; 81003; 83690; 83735; 85025; 96374; 96375; 99284; A9270; J1170; Q9967; 81001; 87086